=== PATIENT | female | born 1945 | race Caucasian/White ===

== ENCOUNTER 2018-10-15 21:06 | Emergency (ER) | payer MEDICARE ==
[~2018-10-15] VITALS: Ht 160 cm; Wt 87.5 kg
[~2018-10-15 21:06] MED LIST: ACID REFLUX MED; AMIT10TA PO; AMLO-150 PO; AMOX-291 PO; ASPI-496 PO; ATOR40TA78 PO; CARI350T14 PO; CETI10TA18 PO; CHOL5000 PO; CLAR500T PO; DULO30CA2 PO; ENAL20TA PO; ESTR1TAB15 PO; FENO134C PO; FLUT16SP NAS; GLIP5TAB10 PO; GUAI600T31 PO; IRON18TA PO; LEVO100T5 PO; LEVO500T47 PO; MEDR2.5T30 PO; METF10002 PO; METF850T10 PO; OMEG1CAP6 PO; OMEP-110 PO; PANT40TA5 PO; POTA99TA2 PO; PRAM0.5T PO; PRAM0.5T5 PO; SODI45SP5 NAS; TRAM50TA2 PO; TRAZ-137 PO; [UNRECOGNIZED DRUG - OTHER] PO
[2018-10-15 21:08] VITALS: BP 156/78
--- NOTE | 2018-10-15 21:34 | NUR ---
PRESENTS TO ED C/O AN INCREASE OF 30 MG, UP TO 90 MG, OF HER CYMBALTA IN THE LAST WEEK. "I HAVE BEEN ON CYMBALTA FOREVER". RECENTLY HAS FELT MORE DEPRESSED AND "I JUST LAYED IN BED THINKING I DONT WANT TO DO THIS ANYMORE... THIS IS TOO HARD TO MANAGE." PT DENIES ANY SI. "I FEEL LIKE DYING, BUT I DONT HAVE ANY PLANS TO ASSIST IT ON THE WAY." HX OF DEPRESSION AND ANXIETY AND STATES HAVING AN ADMISSION TO A PSYCH HOSPITAL FOR HER ANXIETY ONCE PRIOR. DENIES ANY PRIOR ATTEMPTS ON LIFE. PT IS PLEASANT AT BEDSIDE AND HAS, WHAT APPEARS TO BE, A GREAT SUPPORT SYSTEM AT HOME. AND SON AT BEDSIDE. AWAITING MD ASSESSMENT. PT IS A VERY LOW FLIGHT RISK AND IS HERE VOLUNTARILY.
[2018-10-15 22:00] LABS: BASOPHILS # (AUTO) 0.02 x10^3/uL (0-0.1); BASOPHILS % (AUTO) 0 % (0-1); EOSINOPHILS # (AUTO) 0.04 x10^3/uL (0-0.4); EOSINOPHILS % (AUTO) 1 % (1-7); LYMPHOCYTES # (AUTO) 2.25 x10^3/uL (1-3.4); LYMPHOCYTES % (AUTO) 26 % (22-44); MD NO; MEAN CORPUSCULAR HEMOGLOBIN 31.9 pg (27.0-34.8); MEAN CORPUSCULAR HGB CONC 33.5 g/dL (32.4-35.8); MEAN CORPUSCULAR VOLUME 95.4 fL (80-100); MEAN PLATELET VOLUME 8.1 fL (7.4-10.4); MONOCYTES # (AUTO) 0.54 x10^3/uL (0.2-0.8); MONOCYTES % (AUTO) 6 % (2-9); NEUTROPHILS % (AUTO) 67 % (42-75); PLATELET COUNT 237 x10^3/uL (130-400); RED BLOOD COUNT 4.64 x10^6/uL (3.82-5.3); RED CELL DISTRIBUTION WIDTH 13.8 % (9.6-15.2)
--- NOTE | 2018-10-15 22:06 | NUR ---
UA SENT TO LAB AND LAB [facility]. AWAITING RESULTS FOR TELEPSYCH.
[2018-10-15 22:08] LABS: ALANINE AMINOTRANSFERASE 41 U/L (12-78); ALBUMIN 3.9 g/dL (3.4-5.0); ANION GAP 8 mmol/L (5-15); CALCIUM 9.8 mg/dL (8.5-10.1); CHLORIDE 107 mmol/L (98-107); CREATININE 0.75 mg/dL (0.55-1.02)
[2018-10-15 22:09] LABS: SALICYLATE LEVEL < 1.7 mg/dL (2.8-20.0)
[2018-10-15 22:11] LABS: MICROSCOPIC NOT IND
[2018-10-15 22:13] LABS: CULTURE INDICATED? NO
[2018-10-15 22:19] LABS: ALKALINE PHOSPHATASE 56 U/L (45-117); BILIRUBIN,TOTAL 0.3 mg/dL (0.2-1.0); TOTAL PROTEIN 7.1 g/dL (6.4-8.2)
[2018-10-15 22:20] LABS: AMPHETAMINE SCREEN, URINE Negative (Negative); BARBITURATE SCREEN, URINE Negative (Negative); BENZODIAZEPINE SCREEN, URINE Negative (Negative); CANNABINOID SCREEN, URINE Negative (Negative); COCAINE SCREEN, URINE Negative (Negative); METHADONE SCREEN, URINE Negative (Negative); OPIATE SCREEN, URINE Negative (Negative)
[2018-10-15 22:20] LABS: ACETAMINOPHEN < 2 mcg/mL (10-30)
--- NOTE | 2018-10-15 22:36 | NUR ---
PT WATCHING TV. FAMILY AT BEDSIDE. NO IMMEDIATE NEEDS AT THIS TIME.
--- NOTE | 2018-10-15 23:56 | NUR ---
PT WATCHING TV. FAMILY AT BEDSIDE. NO IMMEDIATE NEEDS AT THIS TIME.
--- NOTE | 2018-10-16 01:10 | NUR ---
GIVEN ORTHO CHAIR FOR COMFORT.
--- NOTE | 2018-10-16 01:10 | NUR ---
PT TRANSFERRED TO NEW BED BECAUSE SHE STATES LAST ONE WAS TOO UNCOMFORTABLE. AWAITING TELEPSYCH. NO OTHER IMMEDIATE NEEDS AT THIS TIME.
--- NOTE | 2018-10-16 01:16 | NUR ---
PT STATES SHE IS ON VARIOUS MEDICATIONS. "I CANT REMEMBER THEIR NAMES AND I LEFT MY LIST AT HOME."
--- NOTE | 2018-10-16 02:44 | NUR ---
TELEPSYCH ROBOT AT BEDSIDE. AWAITING SOC. NO IMMEDIATE NEEDS FROM PT.
--- NOTE | 2018-10-16 03:11 | NUR ---
SOC ON PHONE FOR PT UPDATE.
--- NOTE | 2018-10-16 04:13 | NUR ---
TELEPSYCH COMPLETE. AWAITING SOC REPORT FOR DISPO.
--- NOTE | 2018-10-16 04:51 | NUR ---
PT FAMILY MEMBER UPSET SAYING "WE HAVE BEEN HERE FOR 8 HOURS WITH NO WATER, NO FOOD, OUR PATIENCE IS RUNNING THIN." PT REMINDED, LIKE EVERY OTHER TIME THIS RN WENT INTO ROOM, THAT THERE CALL LIGHT IS FOR ANY NEEDS. PT AND FAMILY HAS REFUSED NEEDS EVERY TIME. PT AND SPOUSE GIVEN SANDWICH AT THIS TIME. MD AT BEDSIDE AFTER SOC REPORT.
--- NOTE | 2018-10-16 04:54 | NUR ---
PT TBDC W/ AT HOME MEDS AND OUTPATIENT PSYCH CARE. AWAITING D/C PAPERWORK.
== END 2018-10-16 05:07 | disposition home or self-care (01) ==
LOC: ED 21:54
DX: F33.0 Major depressive disorder, recurrent, mild (principal); I10 Essential (primary) hypertension; E11.9 Type 2 diabetes mellitus without complications; E78.5 Hyperlipidemia, unspecified
CPT/HCPCS: 36415; 80053; 80307; 80329; 81003; 84443; 85025; 93005; 99284; G0480

== ENCOUNTER 2019-02-26 12:29 | Outpatient (CLI) | payer MEDICARE | END 2019-02-26 23:59 | disposition home or self-care (01) | LOC: RAD 12:29 | PROVIDERS: ATTEND Neurological Surgery | DX: M51.36 Other intervertebral disc degeneration, lumbar region (principal); M41.85 Other forms of scoliosis, thoracolumbar region; M48.061 Spinal stenosis, lumbar region without neurogenic claudication; M25.78 Osteophyte, vertebrae; M48.02 Spinal stenosis, cervical region | CPT/HCPCS: 72082; 72110 ==

== ENCOUNTER → 2020-02-02 | Outpatient (CLI) | payer MEDICARE ==
[~2020-02-02] MED LIST changes: +CLAR-14 PO; -CLAR500T PO; -FLUT16SP NAS; +FLUT16SP24 NAS; -TRAZ-137 PO; +TRAZ-175 PO
== END | disposition home or self-care (01) ==
LOC: CFH 09:52
PROVIDERS: ATTEND Internal Medicine Cardiovascular Disease
DX: I35.8 Other nonrheumatic aortic valve disorders (principal); I10 Essential (primary) hypertension
CPT/HCPCS: 93306